=== PATIENT | female | born 1935 | race Caucasian/White ===

== ENCOUNTER 2024-10-16 17:43 | Emergency (ER) | payer SELFPAY ==
[2024-10-16 17:47] VITALS: BP 142/84
--- NOTE | 2024-10-16 18:27 | ED.GENMED ---
History of Present Illness
General
Chief Complaint: Fall
Source: patient
Exam Limitations: none
Time Seen by Provider: 10/16/24 18:08
Nursing documentation reviewed up to this point in time: agreed with
History of Present Illness
History of Present Illness:
Patient states she bent forward to pick something up, States when she stood up she lost her footing and fell backwards hitting back of head on dresser. No LOC. Assisted up by family. Has lac to posterior scalp. No other complaints. Incident
occurred just [employer]
Past History
Past History
ED Past Medical History: Hypercholesterolemia, Psychiatric and Other (osteoporosis)
Social History
Tobacco: Former smoker
Review of Systems
Review of Systems
Allergies reviewed?: Yes
All Other Systems: ROS reviewed and negative except as documented in HPI and ROS
Constitutional: Reports no symptoms
EENT: Reports no symptoms
Respiratory: Reports no symptoms
Cardiac: Reports no symptoms
ABD/GI: Reports no symptoms
Musculoskeletal: Reports no symptoms
Skin: Reports other (laceration to posterior scalp)
Neurological: Reports no symptoms
Psychiatric: Reports no symptoms
Phy Exam
General Physical Exam
General Presentation: well appearing and no apparent distress
General age: appears stated age
General Skin: warm and dry
General Habitus: normal
General Mental: alert
Eye Exam
Eye Exam: PERRL, EOMI and conjunctiva normal
Neurological Exam
Neurological Exam: alert, oriented x3, CN II-XII intact, no motor deficits, no sensory deficits and speech normal
Musculoskeletal Exam
Musculoskeletal Exam: full ROM and neuro vasc intact
Skin Exam
Skin Exam: normal color, warm/dry and no rash
Psychiatric Exam
Psychiatric Exam: normal mood/affect
Course
Orders/Labs/Results
Orders:
Orders
10/16/24 18:16
CT Head W/o Iv Contrast Urgent
Comment:
Reason For Exam: trauma
Cervical Spine wo Contrast CT [CT Cervical Spine W/o Iv Contr] Urgent
Comment:
Reason For Exam: fall
Vital Signs
Initial and Last Documented VS:
Initial Vital Signs
Temp Pulse Resp BP Pulse Ox
98.5 F 73 18 142/84 97
10/16/24 17:47 10/16/24 17:47 10/16/24 17:47 10/16/24 17:47 10/16/24 17:47
Last Documented Vital Signs
Temp Pulse Resp BP Pulse Ox
98.5 F 74 18 122/66 97
10/16/24 17:47 10/16/24 19:44 10/16/24 19:44 10/16/24 19:44 10/16/24 17:47
Procedures
Laceration Closure
Posterior Scalp:
Status of Wound: clean
Description of Wound Edges: sharp
Preparation: cleaned with saline
Revision/Debridement: routine- no revision
Wound exploration: explored to base- no FB
Type of Closure: Dermabond-skin glue
*Radiology
Radiology exam reviewed: radiology read reviewed
*Pulse Oximetry
Patient hypoxic: no
*Critical Care Note
Total Time (30-74mins, 75-104mins- exclusive of procedures): Not Applicable
ED Attending Note
-
Portions of this chart may have been created with voice recognition software.� Occasional wrong word or��sound alike� substitutions may have occurred due to the inherent limitations of voice recognition software.
Discharge Plan
Departure
Patient Disposition: Home (Routine Discharge)
Date of Disposition: 10/16/24
Time of Disposition: 19:31
Patient with high blood pressure during this ER visit?: No
Condition: Good
Covid-19: Not Applicable
Discharge Problem:
Head injury
Instructions: Laceration Repair With Glue (DC), Head Injury in Adults (DC), Contusion (DC), Preventing falls in adults
Prescriptions:
No Action
Evista:
75 mg PO DAILY
citalopram 20 MG tablet
20 mg PO DAILY
atorvastatin [Lipitor] 20 MG tablet
20 mg PO
Referrals:
UNKNOWN - PT DOES,NOT KNOW [Family Provider] -
Activity Restrictions/Additional Instructions:
FOllow up with your family doctor.
Interventions
Interventions:
*Risk Screen - Suicide Last Done: 10/16/24 19:34
*General Assessment Last Done: 10/16/24 19:34
*Neglect/Abuse Screening Last Done: 10/16/24 19:34
*Nursing Disposition Last Done: 10/16/24 19:44
ED-Musculoskeletal Assessment Last Done: 10/16/24 18:42
ED- Neurological Assessment Last Done: 10/16/24 19:34
ED-Skin Assessment Last Done: 10/16/24 18:42
Discharge Date and Time
Discharge Date/Time: 10/16/24 19:45
Print Language: INDONESIAN
Skin Exam
Laceration
Posterior Scalp:
Length in cm: 1.5
Orientation: vertical
Type of Laceration: simple
Any active bleeding?: no active bleeding
Distal skin color and temperature: normal-warm & good color
Normal distal neurovascular exam: Yes
Range of motion: full
[2024-10-16 19:44] VITALS: BP 122/66
== END 2024-10-16 19:45 | disposition home or self-care (01) ==
LOC: EMR 17:43
PROVIDERS: EMERGENCY PHYSICIAN Emergency Medicine
DX: S01.01XA Laceration without foreign body of scalp, initial encounter (principal); W01.0XXA Fall on same level from slipping, tripping and stumbling without subsequent striking against object, initial encounter; E78.00 Pure hypercholesterolemia, unspecified; Z87.891 Personal history of nicotine dependence
CPT/HCPCS: 12001; 99284; 70450; 72125